=== PATIENT | female | born 1965 | race Two or more races ===

== ENCOUNTER 2025-01-16 08:00 | Day surgery (SDC) | payer OTHER ==
[2025-01-06 10:36] VITALS: BP 144/83
[~2025-01-16] VITALS: Ht 157.5 cm; Wt 71.7 kg
[~2025-01-16 08:00] MED LIST: CLINORIL; CLONAZEPAM0.5 MG; METOTREXATO; PEPCID AC20 MG PO; PROTONIX40 MG PO; RESTORIL30 MG PO; ZOCOR20 MG PO
[2025-01-16] MEDS ORDERED: CEFTRIAXONE SODIUM 2,000 MG VIAL ONE (08:54)
[2025-01-16] MEDS ORDERED: METRONIDAZOLE/SODIUM CHLORIDE 500 MG/100 ML PIGGYBACK IV ONE (08:54)
[2025-01-16] MEDS ORDERED: DIBUCAINE 30 GM TUBE ONE (11:36)
[2025-01-16] MEDS ORDERED: POVIDONE-IODINE 118 ML BOTT TOP ONE (11:37)
[2025-01-16] MEDS ORDERED: HEMOSTATIC MATRIX 1 KIT KIT TOP ONE (11:37)
[2025-01-16] MEDS ORDERED: SUGAMMADEX SODIUM 200 MG/2 ML VIAL IV ONE (14:32)
[2025-01-18] MEDS ORDERED: SUGAMMADEX SODIUM 200 MG/2 ML VIAL IV ONE (11:00)
== END 2025-01-16 19:10 | disposition home or self-care (01) ==
LOC: SURH 08:00 → O/R 08:00 → CIR.AMB 08:00 → EDSTATUS 09:00 → SURH 09:00 → O/R 15:15 → SURH 15:15 → O/R 17:40 → SURH 17:40 → O/R 19:10 → CIR.AMB 19:10
PROVIDERS: ATTEND Colon & Rectal Surgery
DX: D12.8 Benign neoplasm of rectum (principal); K62.0 Anal polyp; C20 Malignant neoplasm of rectum

== ENCOUNTER 2025-01-26 08:57 | Emergency (ER) | payer OTHER ==
[~2025-01-26] VITALS: Ht 157.5 cm; Wt 68.9 kg
[2025-01-26] MEDS ORDERED: PROMETHAZINE HCL 25 MG/ML AMPUL IM ONE (09:30)
[2025-01-26 11:04] LABS: BASO % 0.2 % (0.1-1.2); EOS # 0.02 (0.04-0.54); EOS % 0.1 % (0.7-7.0); LYMPH # 0.61 (1.18-3.74); LYMPH % 3.2 % (19.3-53.1); MEAN PLATELET VOLUME 10.10 fl (9.4-12.4); MONO # 0.59 (0.24-0.82); MONO % 3.1 % (4.7-12.5); NEUT # 17.73 (1.56-6.13); NEUT % 93.0 % (34.0-71.1); RED CELL DISTRIBUTION WIDTH 14.8 % (11.6-14.4)
[2025-01-26 11:34] LABS: URINE APPEARANCE Clear; URINE BILIRRUBIN Negative (NEGATIVE); URINE BLOOD Moderate; URINE COLOR Dark Yellow; URINE GLUCOSE Negative (NEGATIVE); URINE KETONE Trace (NEGATIVE); URINE LEUKOCYTE Trace; URINE NITRATE Negative; URINE PROTEIN 30 (NEGATIVE); URINE UROBILINOGEN 1.0 E.U./dl
[2025-01-26 11:35] LABS: URINE BACTERIA 22.7 uL (0.0-1933); URINE CAST 1.61 uL (0.0-1.40); URINE EPITHELIAL CELLS 16.2 uL (0.0-38.8); URINE RBC 35.6 uL (0.0-20.8); URINE WBC 31.6 uL (0.0-23.2)
[2025-01-26 11:39] LABS: BUN CREA RATIO 19.0 (7.0-25.0); CREATININE SERUM 0.89 mg/dL (0.55-1.02); GFR 65.14; GLUCOSE FASTING 131.0 mg/dL (65-100); OSMOLALITY SERUM 285.0 MOSM/KG (275-295)
[2025-01-26 11:46] LABS: COVID-19 AG NEGATIVE (NEGATIVE)
[2025-01-26 12:19] LABS: TYPE CELLS SQUAMOUS; URINE MUCUS HEAVY
== END 2025-01-26 14:41 | disposition home or self-care (01) ==
LOC: ER 08:58
PROVIDERS: Emergency Medicine
DX: R11.0 Nausea (principal); R53.81 Other malaise; Z20.822 Contact with and (suspected) exposure to COVID-19; Z88.8 Allergy status to other drugs, medicaments and biological substances
CPT/HCPCS: 36415; 71046; 96372; 99283; J2250